=== PATIENT | male | born 1990 | race African-American/Black ===

== ENCOUNTER 2020-05-30 11:19 | Emergency (ER) | payer SELFPAY ==
[~2020-05-30] VITALS: Ht 182.9 cm; Wt 74.8 kg
--- NOTE | 2020-05-30 14:58 | Emergency Department Note ---
History of Present Illnes History of Present Illness Chief Complaint: COVID PUI History of Present Illness This is a 29 year old male presents to the ED for Sore throat, fever, and myalgias. . Historian: Patient Arrival Mode: Car Onset (how long ago): day(s) Severity: mild Onset quality: gradual Duration (how long): day(s) (1) Timing of current episode: constant Progression: unchanged Chronicity: new Relieving factors: none Exacerbating factors: none Associated symptoms: Reports fever/chills, Reports malaise Treatments prior to arrival: none Past Medical/Family History Physician Review I have reviewed the patient's past medical and family history. Any updates have been documented here. Past Medical History Recent Fever: Yes Clinical Suspicion of Infectio: Yes New/Unexplained Change in Ment: No Past Medical History: None Other Surgery: LEFT ARM SURGERY Social History Smoking Cessation: Never Smoker Alcohol Use: None Any Illegal Drug Use: No Family History Family history of heart diseas: No Other Last Tetanus: UNKNOWN Review of Systems Review of Systems Constitutional: Reports fever, Reports malaise, Reports weakness EENTM: Reports no symptoms Cardiovascular: Reports no symptoms Respiratory: Reports cough Gastrointestinal: Reports no symptoms Genitourinary: Reports no symptoms Musculoskeletal: Reports no symptoms Integumentary: Reports no symptoms Neurological: Reports no symptoms Psychological: Reports no symptoms Endocrine: Reports no symptoms Hematological/Lymphatic: Reports no symptoms Physical Exam Related Data Allergies: Coded Allergies: No Known Allergies (Unverified , 05/30/20) Triage Vital Signs Vital Signs Date Time Temp Pulse Resp B/P (MAP) Pulse Ox O2 Delivery O2 Flow Rate FiO2 05/30/20 12:07 99.5 99 18 147/80 97 Vital signs reviewed: Yes Physical Exam CONSTITUTIONAL Constitutional: Present well-developed, Present well-nourished HENT HENT: Present normocephalic, Present atraumatic, Present oropharynx clear/moist, Present nose normal HENT L/R: Present left ext ear normal, Present right ext ear normal EYES Eyes: Reports PERRL, Reports conjunctivae normal NECK Neck: Present ROM normal PULMONARY Pulmonary: Present effort normal, Present breath sounds normal CARDIOVASCULAR Cardiovascular: Present regular rhythm, Present heart sounds normal, Present capillary refill normal, Present normal rate GASTROINTESTINAL Abdominal: Present soft, Present nontender, Present bowel sounds normal GENITOURINARY Genitourinary: Present exam deferred SKIN Skin: Present warm, Present dry MUSCULOSKELETAL Musculoskeletal: Present ROM normal NEUROLOGICAL Neurological: Present alert, Present oriented x 3, Present no gross motor or sensory deficits PSYCHOLOGICAL Psychological: Present mood/affect normal, Present judgement normal Assessment & Plan Medical Decision Making MDM 29 yom presents to the ED for febrile illness. Diff Dx : streptococcus infection, URI, Pneumonia, COVID-19 infection. patient well appearing. Vitals reviewed. Plan to discharge to home with Rx Azithromycin and albuterol INH. COVID-19 testing deferred. Patient instructed to take precautions and was referred for outpatient COVID-19 testing Assessment & Plan Final Impression: (1) Upper respiratory infection Depart Disposition: HOME, SELF-CARE Last Vital Signs Date Time Temp Pulse Resp B/P (MAP) Pulse Ox O2 Delivery O2 Flow Rate FiO2 05/30/20 14:56 102.0 95 20 114/77 97 Medications in the ED Acetaminophen 975 mg ONCE ONCE PO Last administered on 05/30/20at 14:57; Admin Dose 975 MG; Start 05/30/20 at 15:00; Stop 05/30/20 at 15:01; Status UNV KASSANDRA LA DO May 30, 2020 14:58
[2020-05-30] MEDS ORDERED: ACETAMINOPHEN 325 MG TAB PO ONE (15:00)
[2020-05-30 15:06] VITALS: BP 114/77
== END 2020-05-30 15:08 | disposition home or self-care (01) ==
LOC: ER 13:28
DX: R50.9 Fever, unspecified (principal); J06.9 Acute upper respiratory infection, unspecified; R05 Cough; M79.10 Myalgia, unspecified site
CPT/HCPCS: 99283

== ENCOUNTER 2020-06-05 10:29 | Emergency (ER) | payer OTHER ==
[~2020-06-05] VITALS: Ht 182.9 cm; Wt 74.8 kg
--- NOTE | 2020-06-05 11:34 | Diagnostic Imaging Report ---
EXAMINATION: CHEST SINGLE (PORTABLE) INDICATION: Shortness of breath COMPARISON: None FINDINGS: LINES/TUBES:None LUNGS:The lungs are moderately inflated. Mild bibasilar patchy opacities. PLEURA:No pleural effusion or pneumothorax. MEDIASTINUM:The cardiomediastinal silhouette appears normal in size and shape. BONES/SOFT TISSUES:No acute osseous injury. ABDOMEN:No free air under the diaphragm. IMPRESSION: Mild bibasilar patchy opacities can be seen with pneumonia in the proper clinical setting. Signed by: Deon Gutierrez MD on 06/05/2020 11:30 AM
[2020-06-05] MEDS ORDERED: ONDANSETRON HCL 4 MG ORAL DISINTEGRATING TAB PO ONE (11:45)
[2020-06-05] MEDS ORDERED: ACETAMINOPHEN 325 MG TAB PO ONE (11:45)
--- NOTE | 2020-06-05 12:07 | Emergency Department Note ---
History of Present Illnes History of Present Illness Chief Complaint: COVID PUI History of Present Illness This is a 29 year old male arrived to the ED with complaints of a cough and fever, pt states symptoms have been present for several days and worsening. Historian: Patient, Family Member Arrival Mode: Car Onset quality: gradual Duration (how long): day(s) Timing of current episode: constant Progression: waxing and waning Chronicity: new Context: Reports recent illness Relieving factors: none Associated symptoms: Reports fever/chills, Reports headaches, Reports loss of appetite Treatments prior to arrival: none Past Medical/Family History Physician Review I have reviewed the patient's past medical and family history. Any updates have been documented here. Past Medical History Recent Fever: Yes Clinical Suspicion of Infectio: Yes New/Unexplained Change in Ment: No Past Medical History: None Other Surgery: LEFT ARM SURGERY Social History Smoking Cessation: Unknown if ever smoked Counseling Performed: No Alcohol Use: Occasional Any Illegal Drug Use: No Other Last Tetanus: UNKNOWN Any Pre-Existing Lines (PICC,: No Review of Systems Review of Systems Constitutional: Reports no symptoms EENTM: Reports no symptoms Cardiovascular: Reports no symptoms Respiratory: Reports as per HPI, Reports cough, Reports dyspnea Gastrointestinal: Reports no symptoms Genitourinary: Reports no symptoms Musculoskeletal: Reports no symptoms Integumentary: Reports no symptoms Neurological: Reports no symptoms Psychological: Reports no symptoms Endocrine: Reports no symptoms Hematological/Lymphatic: Reports no symptoms Physical Exam Related Data Allergies: Coded Allergies: No Known Allergies (Unverified , 05/30/20) Triage Vital Signs Vital Signs Date Time Temp Pulse Resp B/P (MAP) Pulse Ox O2 Delivery O2 Flow Rate FiO2 06/05/20 10:32 100.8 106 18 168/97 97 Room Air Vital signs reviewed: Yes Physical Exam CONSTITUTIONAL Constitutional: Present well-developed, Present well-nourished, Present obese HENT HENT: Present normocephalic, Present atraumatic, Present oropharynx clear/moist, Present nose normal HENT L/R: Present left ext ear normal, Present right ext ear normal EYES Eyes: Reports PERRL, Reports conjunctivae normal NECK Neck: Present ROM normal PULMONARY Pulmonary: Present effort normal, Present breath sounds normal CARDIOVASCULAR Cardiovascular: Present regular rhythm, Present heart sounds normal, Present capillary refill normal, Present normal rate GASTROINTESTINAL Abdominal: Present soft, Present nontender, Present bowel sounds normal GENITOURINARY Genitourinary: Present exam deferred SKIN Skin: Present warm, Present dry MUSCULOSKELETAL Musculoskeletal: Present ROM normal NEUROLOGICAL Neurological: Present alert, Present oriented x 3, Present no gross motor or sensory deficits PSYCHOLOGICAL Psychological: Present mood/affect normal, Present judgement normal Results Imaging Imaging results reviewed: Yes Impressions IMPRESSION: Mild bibasilar patchy opacities can be seen with pneumonia in the proper clinical setting. Assessment & Plan Medical Decision Making MDM 29-year-old well-appearing male arrives to the ED with complaints of cough fever loss of taste and smell. Patient is clinically presenting with signs and symptoms consistent with Covid 19. Patient informed he is positive until proven otherwise. Patient's oxygen saturation remained 99% even on exertion, no evidence of tachypnea or dyspnea noted in the ED. Spoke present length about the importance of sleeping on his stomach and rotating from side to side. Z-Errol given, signs and symptoms for return discussed. In the light of the Covid pandemic, disaster medicine care was given- Patient's imaging reviewed,- chest x-ray shows questionable patchy airspace opacities . Patient clinically appears well, outpatient pulmonary follow-up given. The red flags for return to emergency department given. Patient understands the emergency department is open at all times to serve his needs as well as the needs of the community and given that he requires no supplemental oxygen and is speaking in full sentences with no distress he is stable to go home and quarantine. Assessment & Plan Final Impression: (1) COVID-19 (2) Upper respiratory infection Depart Disposition: ADMITTED Last Vital Signs Date Time Temp Pulse Resp B/P (MAP) Pulse Ox O2 Delivery O2 Flow Rate FiO2 06/05/20 10:32 100.8 106 18 168/97 97 Room Air Medications in the ED Acetaminophen 650 mg ONCE ONCE PO ; Start 06/05/20 at 11:45; Stop 06/05/20 at 11:46; Status UNV Ondansetron HCl 4 mg ONCE ONCE PO ; Start 06/05/20 at 11:45; Stop 06/05/20 at 11:46; Status UNV CHICHI BORDEN DO Jun 05, 2020 12:07
[2020-06-05] MEDS ORDERED: AZITHROMYCIN250 MG PO (12:09)
== END 2020-06-05 13:20 | disposition home or self-care (01) ==
LOC: ER 10:45
DX: U07.1 COVID-19 (principal); J06.9 Acute upper respiratory infection, unspecified; R50.9 Fever, unspecified; R05 Cough
CPT/HCPCS: 71045; 87635; 99282; Q0162